=== PATIENT | male | born 1995 | race African-American/Black ===

== ENCOUNTER 2016-11-07 01:17 | Emergency (ER) | payer BC ==
[~2016-11-07] VITALS: Ht 165.1 cm; Wt 65.8 kg
[2016-11-07 04:39] VITALS: BP 94/44
== END 2016-11-07 04:39 | disposition home or self-care (01) ==
LOC: ED 01:17
DX: F10.129 Alcohol abuse with intoxication, unspecified (principal)
CPT/HCPCS: G0480; J1885; J2405; J7030